=== PATIENT | male | born 1955 | race Caucasian/White ===

== ENCOUNTER → 2023-04-20 14:23 | Outpatient (CLI) | payer MEDICARE, OTHER, SELFPAY ==
--- NOTE | 2023-04-20 14:42 | MR_ITS ---
FINAL REPORT CLINICAL HISTORY: DIZZINESS NEW ONESET HEADACHES VISION CHANGES in left eye 14 ml prohance FINDINGS: Multiplanar MR imaging of the brain was performed without and with contrast. There is mild age-appropriate atrophy. Scattered foci of increased T2 signal are seen in the cerebral white matter that have a nonspecific appearance but likely represent mild chronic ischemic/gliotic changes. There is no evidence of intracranial hemorrhage or mass. No abnormal ventricular dilatation is identified. There is no evidence of shift of the midline structures. No abnormal extra-axial fluid collection is seen. No area of abnormal restricted diffusion is identified. The posterior fossa and brainstem have an unremarkable appearance. No abnormal contrast enhancement is seen. Normal major vessel vascular flow voids are seen. IMPRESSION: Mild atrophy and chronic ischemic/gliotic changes. No acute intracranial abnormality. Reviewed, Interpreted and Dictated by Davis Lazar III, MD Transcribed by Clara Lauren Authenticated and [facility]
[2023-04-20 14:54] LABS: Blood Urea Nitrogen 16 mg/dl (9-20); Estimated Glomerular Filt Rate 84 ml/min (>60); GFR (African American) 102 ML/MIN (>60)
== END ==
PROVIDERS: PCP Nurse Practitioner Family; Visit Provider Nurse Practitioner Family
DX: R42 Dizziness and giddiness (principal); R51.9 Headache, unspecified; H53.9 Unspecified visual disturbance
CPT/HCPCS: 36415; 70553; 82565; 84520; A9576

== ENCOUNTER → 2023-04-24 13:26 | Outpatient (CLI) | payer MEDICARE, OTHER, SELFPAY ==
--- NOTE | 2023-04-24 | CA_ITS ---
APPROVED REPORT EXAM: Comprehensive 2D, Doppler, and color-flow Echocardiogram Pickle Solution Maker: Rachel House RT(R) Ht: 5 ft 11 in Wt: 160lbs BSA: 1.92 BP: 100/70 mmHg Indications: near syncope, dizziness, hyperlipidemia. Ordered as bubble study Echo Enhancing Agent Indication: Rule Out Septal Defect Agent(s) / Amount(s) Used: Agitated Saline 15 cc 2D Dimensions LVOT 2.02 cm (M/F) 1.5-2.5 LA Volume 20.70 mL LA Volume Index 10.78 mL/m2 (M/F) 16-34 M-Mode Dimensions RVDd 3.00 cm (0.9-2.6) LA Diam 2.93 cm (1.9-4.0) LVDd 4.13 cm (3.5-5.7) Ao Diam 3.09 cm (2.0-3.7) LVDs 3.15 cm (3.5-5.7) IVSd 0.68 cm (0.6-1.1) PWd 0.72 cm (0.6-1.1) EF (Teich) 47.80% FS 23.70% EDV (Teich) 75.50 mL ESV (Teich) 39.40 mL LV Diastology E Decel Time 263.00 (160-240 msec) E/A Ratio 1.0 MED E' 10.20 (< 7 cm/sec) E'/MED E' Ratio 5.28 (>14) LAT E' 14.10 (<10 cm/sec) E/LAT E' Ratio 3.82 (>14) Mitral Valve MV E Max Jasbir. 54.00 (40-130 cm/s) MV A Velocity 54.00 (40-130 cm/s) E/A Ratio 1.01 MV Decel. Time 263.00 (160-240 ms) MV PHT 77.00 ms Tricuspid Valve TR P. Velocity 145.00 cm/s RAP Estimate 10.00 mmHg RVSP 18.40 mmHg Left Ventricle The left ventricle is normal size. The left ventricular systolic function is normal. The left ventricular ejection fraction is within the normal range. There is normal left ventricular wall thickness. There is normal LV segmental wall motion. The left ventricular diastolic function is normal. LVEF is 55%. Right Ventricle The right ventricle is mildly dilated. The right ventricular systolic function is normal. Atria The left atrium size is normal. The right atrium size is normal. There is no Doppler evidence of interatrial shunt. Saline bubble contrast intravenous injection does not demonstrate PFO. Aortic Valve The aortic valve leaflets are mildly thickened. There is no aortic valvular stenosis. Trace aortic regurgitation. Mitral Valve The mitral valve leaflets are mildly thickened. No evidence of mitral valve stenosis. Trace mitral regurgitation. Tricuspid Valve The tricuspid valve leaflets are thin and pliable. Mild tricuspid regurgitation. RVSP is normal. Pulmonic Valve The pulmonary valve is normal in structure. Trace pulmonic regurgitation. Great Vessels The aortic root is normal in size. The ascending aorta is normal in size. IVC is normal in size and collapses >50% with inspiration. Pericardium There is no pericardial effusion. Other Information Study Quality: Fair Conclusion Normal biventricular systolic function. Mildly dilated RV. Mild TR. No evidence of interatrial shunt on Doppler or agitated saline (bubble study) at rest or with Valsalva. Electronically signed by : Farrah Brian MD 04/27/2023 20:55:23
== END ==
PROVIDERS: PCP Nurse Practitioner Family; Visit Provider Nurse Practitioner Family
DX: R55 Syncope and collapse (principal); R42 Dizziness and giddiness
CPT/HCPCS: 93306

== ENCOUNTER → 2023-04-27 12:38 | Outpatient (CLI) | payer MEDICARE, OTHER, SELFPAY ==
--- NOTE | 2023-04-27 12:45 | CA_ITS ---
FINAL REPORT TECHNIQUE: Color Doppler, duplex Doppler and pina scale sonography of the bilateral neck arterial vasculature was performed. Velocities were measured in the carotid arteries. Stenosis evaluation based on the validated velocity criteria. CLINICAL HISTORY: DIZZINESS COMPARISON: None FINDINGS: The peak systolic velocity of the right common carotid artery is 72 cm/s. The peak systolic velocity of the right internal carotid artery is 76 cm/s and end diastolic velocity 36 cm/s. The ICA/CCA ratio is 1.1. No significant plaque is present. The right external carotid artery is patent. The right vertebral artery is patent with antegrade flow. The peak systolic velocity of the left common carotid artery is 79 cm/s. The peak systolic velocity of the left internal carotid artery is 61 cm/s and end diastolic velocity 23 cm/s. The ICA/CCA ratio is 0.8. No significant plaque is present. The left external carotid artery is patent.The left vertebral artery is patent with antegrade flow. IMPRESSION: No evidence of carotid stenosis bilaterally. Bilateral patent vertebral arteries with antegrade flow. If indicated, CTA or MRA could further evaluate. Reviewed, Interpreted and Dictated by Davis Lazar III, MD Transcribed by Hilda Car Authenticated and [facility]
== END ==
PROVIDERS: PCP Nurse Practitioner Family; Visit Provider Nurse Practitioner Family
DX: R42 Dizziness and giddiness (principal)
CPT/HCPCS: 93880

== ENCOUNTER 2024-03-24 13:00 | Outpatient (CLI) | payer MEDICARE, OTHER, SELFPAY | END 2024-03-24 23:59 | disposition home or self-care (01) | LOC: LAB.DROPOF 03-25 13:13 | PROVIDERS: PCP Podiatrist; Visit Provider Podiatrist | DX: L60.0 Ingrowing nail (principal); L03.031 Cellulitis of right toe | CPT/HCPCS: 87070; 87077; 87186; 87205 ==